=== PATIENT | male | born 1975 | race Caucasian/White ===

== ENCOUNTER 2021-03-16 13:52 | Inpatient (IN) | payer BC, OTHER, SELFPAY ==
[~2021-03-16 13:52] MED LIST: Iopamidol-370 76% 500 ML 1 ML ONE
[2021-03-16] MEDS ORDERED: Fentanyl 100 MCG/2 ML VIAL ONE ×2 (13:57→15:07)
[2021-03-16] MEDS ORDERED: Ondansetron PF 4 MG/2 ML Vial ONE (13:57)
[2021-03-16 15:00] LABS: Hemoglobin 14.2 g/dL (14.0-18.0); Mean Corpuscular Hemoglobin 32.6 pg (27.0-31.0); Mean Corpuscular Volume 98.9 fL (78.0-98.0); Mean Platelet Volume 7.4 fL (7.4-10.4); Platelet Count 311 thou/uL (130-400); Red Blood Cell (RBC) Count 4.35 mill/uL (4.70-6.10); White Blood Cell (WBC) Count 20.8 thou/uL (4.8-10.8)
[2021-03-16 15:05] LABS: PTT 26.1 sec (22.9-36.1); Prothrombin Time 13.5 sec (12.0-14.7)
[2021-03-16] MEDS ORDERED: Ketorolac Tromethamine 30 MG/ML VIAL ONE (15:07)
[2021-03-16] MEDS ORDERED: Lorazepam 2 MG/ML VIAL ONE (15:07)
[2021-03-16 15:13] LABS: Band 3 % (5-11); Lymphocytes 25 % (21-51); MDiff Complete? YES; Monocytes 1 % (0-10); Neutrophil 70 % (42-75); Platelet Morphology Comment Appears Adequate; RBC Morphology Normal; Reactive Lymphocytes 1 % (0-10)
[2021-03-16 15:22] LABS: ALT (SGPT) 26 U/L (8-55); AST (SGOT) 21 U/L (5-34); Albumin 4.1 g/dL (3.5-5.0); Alkaline Phosphatase 56 U/L (40-110); Anion Gap 13 mmol/L (10-20); BUN (Urea Nitrogen) 19 mg/dL (8.9-20.6); Bilirubin, Total 0.3 mg/dL (0.2-1.2); Calc. Creatinine Clearance 0 mL/min (70-130); Calcium 9.2 mg/dL (7.8-10.44); Carbon Dioxide 24 mmol/L (22-29); Chloride 103 mmol/L (98-107); Globulin 2.6 g/dL (2.4-3.5); Glucose 138 mg/dL (70-105); Lipase 17 U/L (8-78); Potassium 3.8 mmol/L (3.5-5.1); Protein, Total 6.7 g/dL (6.0-8.3); Sodium 136 mmol/L (136-145)
[2021-03-16] MEDS ORDERED: Ondansetron ODT 4 MG TAB PO PRN (15:51)
[2021-03-16] MEDS ORDERED: Ondansetron PF 4 MG/2 ML Vial IVP PRN (15:51)
[2021-03-16] MEDS ORDERED: hydrALAZINE 20 MG/ML VIAL SLOW IVP PRN (15:51)
[2021-03-16] MEDS ORDERED: Cyclobenzaprine 10 MG TAB PO PRN (15:59)
[2021-03-16] MEDS ORDERED: Rib Fracture Protocol IV SCH (16:00)
[2021-03-16] MEDS ORDERED: Boostrix 0.5 ML (Tdap) VIAL ONE (16:44)
[2021-03-16 17:46] LABS: Anion Gap 17 mmol/L (10-20); BUN (Urea Nitrogen) 19 mg/dL (8.9-20.6); Calc. Creatinine Clearance 0 mL/min (70-130); Calcium 9.2 mg/dL (7.8-10.44); Carbon Dioxide 21 mmol/L (22-29); Chloride 101 mmol/L (98-107); Glucose 123 mg/dL (70-105); Potassium 3.5 mmol/L (3.5-5.1); Sodium 135 mmol/L (136-145)
[2021-03-16] MEDS ORDERED: Acetaminophen 325 MG TAB PO SCH (18:00)
[2021-03-16] MEDS ORDERED: traMADol HCl 50 MG TAB PO SCH (18:00)
[2021-03-16] MEDS ORDERED: Ibuprofen 200 MG TAB PO SCH (18:30)
[2021-03-16 18:51] VITALS: BMI 29.1
[2021-03-16] MEDS: Gabapentin 100 MG CAP PO SCH (20:24)
[2021-03-16] MEDS: Ibuprofen 200 MG TAB PO SCH (20:25)
[2021-03-16] MEDS: Acetaminophen 325 MG TAB PO SCH (20:25)
[2021-03-16] MEDS: traMADol HCl 50 MG TAB PO SCH (20:26)
[2021-03-16] MEDS ORDERED: Lactated Ringer's 1,000 ML IV SCH (22:00)
[2021-03-16] MEDS ORDERED: Acetaminophen 650 MG Suppository PR SCH (23:59)
[2021-03-17] MEDS: Ketorolac Tromethamine 30 MG/ML VIAL IVP SCH ×2 (01:42→05:53)
[2021-03-17] MEDS: traMADol HCl 50 MG TAB PO SCH ×4 (01:48→20:19)
[2021-03-17] MEDS: traMADol HCl 50 MG TAB PO PRN ×2 (01:49→09:13)
[2021-03-17] MEDS: Acetaminophen 325 MG TAB PO SCH ×4 (01:49→20:19)
[2021-03-17] MEDS ORDERED: traMADol HCl 50 MG TAB PO SCH (02:00)
[2021-03-17] MEDS: Ibuprofen 200 MG TAB PO SCH ×3 (05:31→20:20)
[2021-03-17] MEDS ORDERED: TETANUS, DIPHTHERIA TOX,ADULT (TDVAX) 0.5 ML VIAL IM ONE (09:00)
[2021-03-17] MEDS: Gabapentin 100 MG CAP PO SCH ×3 (09:14→20:20)
[2021-03-17] MEDS: Silver Nitrate Application 1 EACH TOP SCH (09:16)
[2021-03-17] MEDS: Polyethylene Glycol 3350 17 GM Packet PO SCH (09:16)
[2021-03-17 11:09] LABS: #Lymphocytes 2.5 thou/uL (1.20-3.40); #Monocytes 1.1 thou/uL (0.11-0.59); #Neutrophils 8.6 thou/uL (1.40-6.50); %Basophils 0.4 % (0.0-1.0); %Eosinophils 0.4 % (0.0-10.0); %Lymphocytes 20.6 % (21.0-51.0); %Monocytes 8.9 % (0.0-10.0); %Neutrophils 69.8 % (42.0-75.0); Hemoglobin 13.7 g/dL (14.0-18.0); Mean Corpuscular HGB CONC 33.5 g/dL (32.0-36.0); Mean Corpuscular Hemoglobin 33.3 pg (27.0-31.0); Mean Corpuscular Volume 99.6 fL (78.0-98.0); Mean Platelet Volume 7.4 fL (7.4-10.4); Platelet Count 295 thou/uL (130-400); RBC Distribution Width 12.2 % (11.5-14.5); Red Blood Cell (RBC) Count 4.11 mill/uL (4.70-6.10); White Blood Cell (WBC) Count 12.3 thou/uL (4.8-10.8)
[2021-03-17 11:28] LABS: Phosphorus 2.8 mg/dL (2.3-4.7)
[2021-03-17] MEDS: Cyclobenzaprine 10 MG TAB PO PRN ×2 (11:30→20:19)
[2021-03-17] MEDS: Nicotine 14 MG PATCH TD SCH (11:30)
[2021-03-17 13:34] LABS: SARS-CoV-2 PCR by NAA Not Detected (NotDetected)
[2021-03-17] MEDS: Morphine 2 MG/ML VIAL SLOW IVP PRN ×2 (15:52→20:20)
[2021-03-17] MEDS: cloNIDine 0.1 MG TAB PO SCH (18:21)
[2021-03-18] MEDS: cloNIDine 0.1 MG TAB PO SCH ×4 (00:09→18:05)
[2021-03-18] MEDS: Morphine 2 MG/ML VIAL SLOW IVP PRN ×2 (00:10→05:06)
[2021-03-18] MEDS: Acetaminophen 325 MG TAB PO SCH ×3 (01:07→14:02)
[2021-03-18] MEDS: traMADol HCl 50 MG TAB PO SCH ×2 (01:07→08:15)
[2021-03-18] MEDS: Ibuprofen 200 MG TAB PO SCH ×3 (05:06→20:23)
[2021-03-18 05:33] LABS: #Basophils 0.1 thou/uL (0.0-0.2); #Eosinphils 0.2 thou/uL (0.0-0.7); #Monocytes 1.2 thou/uL (0.11-0.59); #Neutrophils 8.4 thou/uL (1.40-6.50); %Basophils 0.6 % (0.0-1.0); %Eosinophils 1.4 % (0.0-10.0); %Monocytes 9.6 % (0.0-10.0); %Neutrophils 65.4 % (42.0-75.0); Hemoglobin 12.8 g/dL (14.0-18.0); Mean Corpuscular HGB CONC 33.6 g/dL (32.0-36.0); Mean Corpuscular Hemoglobin 33.5 pg (27.0-31.0); Mean Corpuscular Volume 99.7 fL (78.0-98.0); Mean Platelet Volume 7.7 fL (7.4-10.4); Platelet Count 263 thou/uL (130-400); RBC Distribution Width 12.1 % (11.5-14.5); Red Blood Cell (RBC) Count 3.82 mill/uL (4.70-6.10); White Blood Cell (WBC) Count 12.9 thou/uL (4.8-10.8)
[2021-03-18] MEDS ORDERED: Morphine 2 MG/ML VIAL SLOW IVP PRN (07:56)
[2021-03-18] MEDS ORDERED: Gabapentin 100 MG CAP PO SCH (07:57)
[2021-03-18] MEDS: Ferrous Sulfate 325 MG TAB PO SCH ×2 (09:22→20:23)
[2021-03-18] MEDS: Morphine 4 MG/ML VIAL SLOW IVP PRN ×3 (09:23→20:24)
[2021-03-18] MEDS: Polyethylene Glycol 3350 17 GM Packet PO SCH (09:23)
[2021-03-18] MEDS: Gabapentin 300 MG CAP PO SCH ×3 (09:23→20:23)
[2021-03-18] MEDS: Ascorbic Acid 500 mg Chewable Tablet PO SCH ×2 (09:23→20:23)
[2021-03-18] MEDS: Nicotine 14 MG PATCH TD SCH (09:24)
[2021-03-18] MEDS: Silver Nitrate Application 1 EACH TOP SCH (11:24)
[2021-03-18] MEDS ORDERED: Acetaminophen/Codeine 30-300mg Tablet PO STA (11:30)
[2021-03-18] MEDS ORDERED: Acetaminophen/Codeine 30-300mg Tablet PO SCH (12:00)
[2021-03-18] MEDS: Cyclobenzaprine 10 MG TAB PO PRN (12:19)
[2021-03-18] MEDS: Acetaminophen/Codeine 30-300mg Tablet PO SCH ×2 (18:05→23:40)
[2021-03-18] MEDS: Silver Sulfadiazine 50 GM TUBE TOP SCH (20:23)
[2021-03-19] MEDS: cloNIDine 0.1 MG TAB PO SCH ×5 (00:41→23:24)
[2021-03-19] MEDS: Ibuprofen 200 MG TAB PO SCH ×3 (03:55→20:06)
[2021-03-19] MEDS: Acetaminophen/Codeine 30-300mg Tablet PO SCH ×4 (05:56→23:23)
[2021-03-19 08:04] LABS: #Basophils 0.1 thou/uL (0.0-0.2); #Eosinphils 0.3 thou/uL (0.0-0.7); #Lymphocytes 2.3 thou/uL (1.20-3.40); #Monocytes 1.1 thou/uL (0.11-0.59); #Neutrophils 7.3 thou/uL (1.40-6.50); %Basophils 0.7 % (0.0-1.0); %Eosinophils 3.1 % (0.0-10.0); %Lymphocytes 20.6 % (21.0-51.0); %Monocytes 9.5 % (0.0-10.0); %Neutrophils 66.1 % (42.0-75.0); Hemoglobin 12.5 g/dL (14.0-18.0); Mean Corpuscular HGB CONC 33.9 g/dL (32.0-36.0); Mean Corpuscular Hemoglobin 34.1 pg (27.0-31.0); Mean Platelet Volume 7.5 fL (7.4-10.4); Platelet Count 264 thou/uL (130-400); Red Blood Cell (RBC) Count 3.65 mill/uL (4.70-6.10); White Blood Cell (WBC) Count 11.1 thou/uL (4.8-10.8)
[2021-03-19] MEDS: Ferrous Sulfate 325 MG TAB PO SCH ×2 (08:28→20:07)
[2021-03-19] MEDS: Gabapentin 300 MG CAP PO SCH ×3 (08:28→20:06)
[2021-03-19] MEDS: Ascorbic Acid 500 mg Chewable Tablet PO SCH ×2 (08:28→20:06)
[2021-03-19] MEDS: Polyethylene Glycol 3350 17 GM Packet PO SCH (08:29)
[2021-03-19] MEDS: Silver Sulfadiazine 50 GM TUBE TOP SCH ×2 (08:29→20:09)
[2021-03-19] MEDS: Nicotine 14 MG PATCH TD SCH (08:29)
[2021-03-19] MEDS: Acetaminophen/Codeine 30-300mg Tablet PO PRN (14:54)
[2021-03-19] MEDS: Cyclobenzaprine 10 MG TAB PO PRN (20:08)
[2021-03-20] MEDS: Ibuprofen 200 MG TAB PO SCH ×2 (04:57→11:23)
[2021-03-20] MEDS: Acetaminophen/Codeine 30-300mg Tablet PO SCH ×2 (04:57→11:22)
[2021-03-20] MEDS: cloNIDine 0.1 MG TAB PO SCH ×2 (05:08→11:23)
[2021-03-20 06:29] LABS: #Basophils 0.1 thou/uL (0.0-0.2); #Eosinphils 0.4 thou/uL (0.0-0.7); #Lymphocytes 2.4 thou/uL (1.20-3.40); #Monocytes 1.2 thou/uL (0.11-0.59); #Neutrophils 7.4 thou/uL (1.40-6.50); %Basophils 0.9 % (0.0-1.0); %Eosinophils 3.9 % (0.0-10.0); %Monocytes 10.3 % (0.0-10.0); %Neutrophils 63.9 % (42.0-75.0); Hemoglobin 11.1 g/dL (14.0-18.0); Mean Corpuscular HGB CONC 32.2 g/dL (32.0-36.0); Mean Corpuscular Hemoglobin 32.4 pg (27.0-31.0); Mean Platelet Volume 7.6 fL (7.4-10.4); Platelet Count 259 thou/uL (130-400); RBC Distribution Width 12.2 % (11.5-14.5); Red Blood Cell (RBC) Count 3.42 mill/uL (4.70-6.10); White Blood Cell (WBC) Count 11.5 thou/uL (4.8-10.8)
[2021-03-20] MEDS: Gabapentin 300 MG CAP PO SCH ×2 (09:00→15:04)
[2021-03-20] MEDS: Silver Sulfadiazine 50 GM TUBE TOP SCH (09:00)
[2021-03-20] MEDS: Ferrous Sulfate 325 MG TAB PO SCH (09:00)
[2021-03-20] MEDS: Ascorbic Acid 500 mg Chewable Tablet PO SCH (09:00)
[2021-03-20] MEDS: Nicotine 14 MG PATCH TD SCH (09:00)
[2021-03-20] MEDS: Polyethylene Glycol 3350 17 GM Packet PO SCH (09:00)
[2021-03-20] MEDS: Acetaminophen/Codeine 30-300mg Tablet PO PRN ×2 (10:10→15:11)
[2021-03-20 11:22] VITALS: BP 134/84; TEMP 98
[2021-03-20] MEDS: Cyclobenzaprine 10 MG TAB PO PRN (12:24)
[2021-03-20] MEDS ORDERED: Docusate 100 MG CAP PO PRN (15:18)
[2021-03-20] MEDS ORDERED: Docusate 100 MG CAP PO SCH (15:19)
== END 2021-03-20 15:41 | disposition home or self-care (01) | DRG 551 ==
LOC: ERS 13:52 → SJJU 15:16
PROVIDERS: ADMIT Surgery; ATTEND Surgery
PROC: 3E0234Z Introduction of Serum, Toxoid and Vaccine into Muscle, Percutaneous Approach (ICD-10-PCS; principal; 2021-03-16)
DX: S32.039A Unspecified fracture of third lumbar vertebra, initial encounter for closed fracture (principal); S27.2XXA Traumatic hemopneumothorax, initial encounter; S22.42XA Multiple fractures of ribs, left side, initial encounter for closed fracture; S52.511A Displaced fracture of right radial styloid process, initial encounter for closed fracture; D62 Acute posthemorrhagic anemia; J98.11 Atelectasis; S27.321A Contusion of lung, unilateral, initial encounter; Z20.822 Contact with and (suspected) exposure to COVID-19; Z23 Encounter for immunization; D72.829 Elevated white blood cell count, unspecified; I10 Essential (primary) hypertension; F32.9 Major depressive disorder, single episode, unspecified; F17.210 Nicotine dependence, cigarettes, uncomplicated; V28.4XXA Motorcycle driver injured in noncollision transport accident in traffic accident, initial encounter; S32.049A Unspecified fracture of fourth lumbar vertebra, initial encounter for closed fracture
CPT/HCPCS: 29105; 36415; 36416; 70450; 71045; 71260; 72125; 74177; 80053; 83690; 83735; 84100; 85025; 85610; 85730; 87635; 90471; 90715; 94640; 94760; 96374; 96375; 96376; G0390; J1885; J2060; J2270; J2405; J3010; J7620; Q9967; U0003; U0005

== ENCOUNTER 2021-04-04 13:16 | Outpatient (CLI) | payer OTHER | END 2021-04-04 13:17 | disposition home or self-care (01) | LOC: BICRAD 13:16 | PROVIDERS: ATTEND Surgery | DX: V89.2XXA Person injured in unspecified motor-vehicle accident, traffic, initial encounter (principal); J98.11 Atelectasis | CPT/HCPCS: 71046 ==